=== PATIENT | female | born 1995 | race African-American/Black ===

== ENCOUNTER 2022-12-06 09:36 | Emergency (ER) | payer OTHER ==
[2022-12-06] MEDS ORDERED: Ketorolac Tromethamine 30 MG/ML VIAL ONE (09:52)
[2022-12-06] MEDS ORDERED: Lidocaine 1% w/Epinephrine 1:100K 20 ML VIAL ONE (09:53)
[2022-12-06] MEDS ORDERED: Bupivacaine 0.25% 10 ML VIAL ONE (10:09)
== END 2022-12-06 11:23 | disposition home or self-care (01) ==
LOC: ERS 09:36
DX: K08.89 Other specified disorders of teeth and supporting structures (principal); E78.5 Hyperlipidemia, unspecified
CPT/HCPCS: 96372; 99282; J1885; S0020